=== PATIENT | female | born 1945 | race Caucasian/White ===

== ENCOUNTER 2018-07-21 08:20 | Day surgery (SDC) | payer MEDICARE ==
[2018-07-20 09:29] VITALS: BMI 29.2
--- NOTE | 2018-07-21 13:28 | OP ---
DATE OF PROCEDURE 07/21/2018 SURGEON: Trisha Street M.D. OPERATIVE PROCEDURE: Colonoscopy with biopsy. PREOPERATIVE DIAGNOSIS: A 73-year-old female with chronic diarrhea for nearly two and a cat lf months. Her stool studies have been negative. The patient has also history of colon [facility]. The patient undergoing colonoscopy. POSTOPERATIVE DIAGNOSES: 1. Inflammatory changes from the sigmoid colon with scattered diverticular disease. 2. Mucosa becomes normal from the descending colon all the way to the cecum. 3. Hemorrhoids. PROCEDURE IN DETAIL: The patient was placed on her left lateral position and was given sedation by A nesthesia Department. A rectal exam was done before the scope was advanced into the rectum. No lesi ons felt on rectal exam. A Pentax video colonoscope was introduced into the rectum and advanced all the way to cecum. The prep was good. The mucosa of the cecum, ascending colon, hepatic flexure, tra nsverse colon, descending colon appears normal. It shows normal vascular pattern. No inflammatory c hanges seen. The sigmoid colon showed scattered diverticulosis. There are inflammatory changes diff use in the sigmoid colon area. This is not typical of ulcerative colitis. Retroflexion of scope in the rectum showed hemorrhoids. The rectal mucosa appears healthy, does not have any inflammatory ramsey nges. Biopsy obtained from the ascending colon, transverse colon to rule out microscopic colitis. A lso, biopsies obtained from the sigmoid area. OVERALL IMPRESSION: The findings mostly represent diverticulitis and then acute colitis. RECOMMENDATIONS: 1. Start the patient on ciprofloxacin 500 mg p.o. twice a day with Flagyl 500 p.o. 3 times a day for 7-10 days. 2. Await the colonic biopsy and make further recommendations.
--- NOTE | 2018-07-21 13:39 | OP ---
DATE OF PROCEDURE: 07/21/2018 SURGEON: Trisha Street M.D. OPERATIVE PROCEDURE: Esophagogastroduodenoscopy with biopsy. PREOPERATIVE DIAGNOSIS: Abdominal pain. POSTOPERATIVE DIAGNOSES: 1. Mucosal erythema, friability at the distal esophagus. 2. Multiple shallow ulcers with erosions of the gastric body and gastric antrum. 3. Normal duodenum. PROCEDURE NOTE: The patient was placed on her left lateral position and was given sedation by Anesthesia Department. A Pentax video gastroscope under direct vision was passed down the oropharynx, past the GE junction, into the stomach and subsequently into descending duodenum. The esophagus appeared normal over the upper two-thirds. Over the distal esophagus, the patient had mucosal erythema and edema. The mucosa was friable. No ulcerations or any erosions seen. The fundus, cardia and proximal gastric body, no pathology seen. Over the lower part of the gastric body into the gastric antrum, and angularis, the patient found to have multiple shallow ulcers, erosions and gastritis. Biopsy obtained from the gastric antrum and gastric body. The duodenal bulb, no pathology seen. The descending duodenum, no pathology seen. Because of history of chronic diarrhea, random biopsies obtained descending duodenum. Also, biopsies of the gastric antrum and gastric body. The stomach was decompressed and the scope removed. DISCHARGE PLANNING: This is a 73-year-old female with abdominal pain , history of colon polyp and chronic diarrhea for nearly 2-1/2 months. The patient has had stool studies that came back negative. The patient underwent EGD and was found to have multiple shallow gastric ulcers, erosions and gastritis. The colonoscopy showed inflammatory change in the sigmoid colon suggestive of focal colitis. I believe it is more of a resolving diverticulitis. She had a biopsy of the transverse colon, ascending colon and sigmoid colon. DISCHARGE RECOMMENDATIONS: 1. The patient advised to stop taking her naproxen and also aspirin. 2. Start the patient on omeprazole 40 once a day. 3. We will start the patient also p.o. antibiotics with Cipro and Flagyl. 4. The patient was advised to call me if she develops abdominal pain, hematochezia or fever. 5. In the absence of any of the above symptoms she will come back to me next week. [facility]
== END 2018-07-21 11:25 | disposition home or self-care (01) ==
LOC: SDC 08:20
PROVIDERS: ATTEND Internal Medicine Gastroenterology
PROC: 0DBK8ZX Excision of Ascending Colon, Via Natural or Artificial Opening Endoscopic, Diagnostic (ICD-10-PCS; principal; 2018-07-21)
PROC: 0DBL8ZX Excision of Transverse Colon, Via Natural or Artificial Opening Endoscopic, Diagnostic (ICD-10-PCS; 2018-07-21)
PROC: 0DBN8ZX Excision of Sigmoid Colon, Via Natural or Artificial Opening Endoscopic, Diagnostic (ICD-10-PCS; 2018-07-21)
PROC: 0DB98ZX Excision of Duodenum, Via Natural or Artificial Opening Endoscopic, Diagnostic (ICD-10-PCS; 2018-07-21)
PROC: 0DB68ZX Excision of Stomach, Via Natural or Artificial Opening Endoscopic, Diagnostic (ICD-10-PCS; 2018-07-21)
DX: K52.9 Noninfective gastroenteritis and colitis, unspecified (principal); K57.30 Diverticulosis of large intestine without perforation or abscess without bleeding; K64.9 Unspecified hemorrhoids; K29.70 Gastritis, unspecified, without bleeding; K25.9 Gastric ulcer, unspecified as acute or chronic, without hemorrhage or perforation; Z86.010 Personal history of colon polyps; Z79.1 Long term (current) use of non-steroidal anti-inflammatories (NSAID); Z79.82 Long term (current) use of aspirin; Z79.899 Other long term (current) drug therapy; Z88.2 Allergy status to sulfonamides; Z88.8 Allergy status to other drugs, medicaments and biological substances
CPT/HCPCS: 88305; 88312; 88313

== ENCOUNTER 2018-12-17 18:32 | Emergency (ER) | payer MEDICARE ==
--- NOTE | 2018-12-17 19:43 | RAD ---
FOUR VIEWS LEFT ELBOW: 12/17/18 HISTORY: Injury to left elbow. Patient unable to bend left elbow. FINDINGS: True lateral view is unable to be obtained due to patient's inability to position the left elbow. How ever, provided images demonstrate no evidence of a fracture or dislocation. Although lateral view is limited, no obvious joint effusion is appreciated. IMPRESSION: No acute osseous abnormality left elbow. POS: [facility]
== END 2018-12-17 20:01 | disposition home or self-care (01) ==
LOC: SCSER 18:32
DX: M25.522 Pain in left elbow (principal); I49.3 Ventricular premature depolarization; I10 Essential (primary) hypertension; E03.9 Hypothyroidism, unspecified
CPT/HCPCS: 29105

== ENCOUNTER 2019-08-31 10:36 | Outpatient (CLI) | payer MEDICARE ==
--- NOTE | 2019-08-31 11:30 | CT ---
CT pulmonary lung scan without IV contrast INDICATION: Lung cancer screening protocol; 1 pack per day smoker for 52 years; recently quit in 2018. History of breast cancer and right-sided mastectomy. COMPARISON: None FINDINGS: LUNGS: Nodules\mass: No suspicious nodule demonstrated. Emphysema: There is moderate paraseptal and centrilobular emphysema there are areas of subsegmental v olume loss involving both lower lobes. Additional findings: There is a small calcified granuloma in the right lower lobe. There are coronary artery and thoracic aortic calcifications. There is a postsurgical change of a right mastectomy. Mediastinum: No lymphadenopathy. Upper abdomen: There is a 2 mm nonobstructing calculus within the mid to inferior pole of the left ki dney. Osseous structures: No acute abnormality. There is scattered degenerative and osteoarthritic change p resent. IMPRESSION: Lung-RADS Category 1: Negative- Continue annual screening with LDCT in 12 months. Category S: Moderate emphysema, coronary artery and thoracic aortic calcifications and left nephrolit hiasis Category C: Not applicable.
== END 2019-08-31 10:37 | disposition home or self-care (01) ==
LOC: CT 10:36
PROVIDERS: ATTEND Internal Medicine
DX: Z87.891 Personal history of nicotine dependence (principal)
CPT/HCPCS: G0297

== ENCOUNTER 2020-12-15 14:04 | Outpatient (CLI) | payer MEDICARE | END 2020-12-15 14:05 | disposition home or self-care (01) | LOC: BICCT 14:04 | PROVIDERS: ATTEND Family Medicine | DX: Z12.2 Encounter for screening for malignant neoplasm of respiratory organs (principal); Z87.891 Personal history of nicotine dependence; R91.1 Solitary pulmonary nodule; I25.10 Atherosclerotic heart disease of native coronary artery without angina pectoris; K76.0 Fatty (change of) liver, not elsewhere classified; I70.0 Atherosclerosis of aorta | CPT/HCPCS: 71271 ==

== ENCOUNTER 2021-06-18 13:58 | Outpatient (CLI) | payer MEDICARE | END 2021-06-18 13:59 | disposition home or self-care (01) | LOC: CT 13:58 | PROVIDERS: ATTEND Family Medicine | DX: Z12.2 Encounter for screening for malignant neoplasm of respiratory organs (principal); J43.9 Emphysema, unspecified; R91.8 Other nonspecific abnormal finding of lung field; J98.11 Atelectasis; I25.10 Atherosclerotic heart disease of native coronary artery without angina pectoris; Z87.891 Personal history of nicotine dependence | CPT/HCPCS: 71271 ==

== ENCOUNTER 2022-07-10 08:18 | Outpatient (CLI) | payer MEDICARE | END 2022-07-10 08:19 | disposition home or self-care (01) | LOC: BICCT 08:18 | PROVIDERS: ATTEND Internal Medicine Critical Care Medicine | DX: R91.1 Solitary pulmonary nodule (principal) | CPT/HCPCS: 71250 ==

== ENCOUNTER 2023-07-10 08:36 | Outpatient (CLI) | payer MEDICARE | END 2023-07-10 08:37 | disposition home or self-care (01) | LOC: SCSCT 08:36 | PROVIDERS: ATTEND Internal Medicine Critical Care Medicine | DX: R91.1 Solitary pulmonary nodule (principal) | CPT/HCPCS: 71250 ==

== ENCOUNTER 2024-03-15 09:40 | Outpatient (CLI) | payer MEDICARE | END 2024-03-15 09:41 | disposition home or self-care (01) | LOC: ULT 09:40 | PROVIDERS: ATTEND Family Medicine | DX: R14.0 Abdominal distension (gaseous) (principal); R19.8 Other specified symptoms and signs involving the digestive system and abdomen; K76.0 Fatty (change of) liver, not elsewhere classified | CPT/HCPCS: 76700 ==

== ENCOUNTER 2024-07-20 09:36 | Outpatient (CLI) | payer MEDICARE | END 2024-07-20 09:37 | disposition home or self-care (01) | LOC: RAD 09:36 | PROVIDERS: ATTEND Internal Medicine Critical Care Medicine | DX: R06.00 Dyspnea, unspecified (principal) | CPT/HCPCS: 71046 ==

== ENCOUNTER 2025-07-12 14:05 | Outpatient (CLI) | payer OTHER | END 2025-07-12 14:06 | disposition home or self-care (01) | LOC: BICRAD 14:05 | PROVIDERS: ATTEND Family Medicine | DX: M25.511 Pain in right shoulder (principal); R91.1 Solitary pulmonary nodule; M90.8 Osteopathy in diseases classified elsewhere ==

== ENCOUNTER 2025-07-20 15:15 | Outpatient (CLI) | payer OTHER | END 2025-07-20 15:16 | disposition home or self-care (01) | LOC: RAD 15:15 | PROVIDERS: ATTEND Internal Medicine Critical Care Medicine | DX: R06.00 Dyspnea, unspecified (principal) | CPT/HCPCS: 71046 ==

== ENCOUNTER 2025-08-29 10:10 | Outpatient (CLI) | payer OTHER | END 2025-08-29 10:11 | disposition home or self-care (01) | LOC: PET 10:10 | PROVIDERS: ATTEND Internal Medicine Critical Care Medicine | DX: R91.1 Solitary pulmonary nodule (principal) | CPT/HCPCS: 78815; A9552 ==